=== PATIENT | male | born 1955 | race Caucasian/White ===

== ENCOUNTER → 2019-07-06 | Outpatient (CLI) | payer OTHER ==
[~2019-07-06] MED LIST: ASA81BEC PO; BACLOFEN5 MG PO; DIAZEPAM 5 MG5 M1 PO; FLEXERIL PO; FLONASE 0.05%50 MCG NARES; IBUPROFEN200 M1 PO; LATUDA60 MG PO; LEVALBUTER1.25 MG/0. INH; LIPITOR 20 MG T20 M1 PO; LORATIDINE 10 M10 M1 PO; METFORMIN HCL500 M3 PO; MONTELUKAST SODI4 M1 PO; OMEPRAZOLE 20 M20 M1 PO; PERCOCET 5-3251 EACH PO; PROAIR HFA8.5 GM INH; REMERON 30 MG T30 M1 PO; RITALIN10 MG PO; SERTRALINE HCL100 MG PO; SYMBICORT160 MCG/4. INH; TESTOSTERONE; TRAZODONE HCL100 MG PO; TYLENOL325 M1 PO; XANAX 0.5 MG0.5 M1 PO; [UNRECOGNIZED DRUG - MIXTURE]
== END ==
LOC: M.PC 02:05
DX: M50.11 Cervical disc disorder with radiculopathy, high cervical region (principal); M47.22 Other spondylosis with radiculopathy, cervical region; M79.601 Pain in right arm; R20.0 Anesthesia of skin

== ENCOUNTER → 2019-08-31 | Outpatient (CLI) | payer OTHER | END | disposition home or self-care (01) | LOC: M.PC 01:37 | DX: M79.18 Myalgia, other site (principal); G89.29 Other chronic pain; M50.10 Cervical disc disorder with radiculopathy, unspecified cervical region; M47.22 Other spondylosis with radiculopathy, cervical region; E78.00 Pure hypercholesterolemia, unspecified; J45.909 Unspecified asthma, uncomplicated; F41.9 Anxiety disorder, unspecified; Z98.890 Other specified postprocedural states; Z79.899 Other long term (current) drug therapy ==

== ENCOUNTER → 2019-09-28 | Outpatient (CLI) | payer OTHER | END | disposition home or self-care (01) | LOC: M.PC 03:38 | PROVIDERS: ATTEND Physical Medicine & Rehabilitation | DX: M47.812 Spondylosis without myelopathy or radiculopathy, cervical region (principal); M54.2 Cervicalgia; E78.00 Pure hypercholesterolemia, unspecified; F41.9 Anxiety disorder, unspecified; J45.909 Unspecified asthma, uncomplicated; M47.22 Other spondylosis with radiculopathy, cervical region; Z98.890 Other specified postprocedural states; Z79.899 Other long term (current) drug therapy ==

== ENCOUNTER → 2019-10-12 | Outpatient (CLI) | payer OTHER | LOC: M.PC 04:18 | PROVIDERS: ATTEND Physical Medicine & Rehabilitation | DX: M50.10 Cervical disc disorder with radiculopathy, unspecified cervical region (principal); M47.22 Other spondylosis with radiculopathy, cervical region; M96.1 Postlaminectomy syndrome, not elsewhere classified; M79.10 Myalgia, unspecified site; Z79.899 Other long term (current) drug therapy ==

== ENCOUNTER → 2019-11-09 | Outpatient (CLI) | payer OTHER ==
[~2019-11-09] MED LIST changes: +IPRAT-ALBUT 0.5-3 ML INH; +LIPITOR 40 MG T40 M1 PO; +METHYLPHENIDATE20 M1 PO; +OMEPRAZOLE10 MG PO; +SINGULAIR 10 MG10 M1 PO; +TESTOSTERO200 MG/1 M IM
== END ==
LOC: M.PC 04:23
PROVIDERS: ATTEND Physical Medicine & Rehabilitation
DX: M47.22 Other spondylosis with radiculopathy, cervical region (principal); M50.10 Cervical disc disorder with radiculopathy, unspecified cervical region; M96.1 Postlaminectomy syndrome, not elsewhere classified; R20.2 Paresthesia of skin; M79.10 Myalgia, unspecified site; M53.82 Other specified dorsopathies, cervical region

== ENCOUNTER → 2020-08-29 | Outpatient (CLI) | payer OTHER | END | disposition home or self-care (01) | LOC: M.PC 08:49 | PROVIDERS: ATTEND Physical Medicine & Rehabilitation | DX: M47.812 Spondylosis without myelopathy or radiculopathy, cervical region (principal); M50.30 Other cervical disc degeneration, unspecified cervical region; G89.29 Other chronic pain; E78.00 Pure hypercholesterolemia, unspecified; J45.909 Unspecified asthma, uncomplicated; F41.9 Anxiety disorder, unspecified; Z98.890 Other specified postprocedural states; Z79.899 Other long term (current) drug therapy ==

== ENCOUNTER → 2020-12-07 | Outpatient (CLI) | payer OTHER | END | disposition home or self-care (01) | LOC: M.PC 09:43 | PROVIDERS: ATTEND Physical Medicine & Rehabilitation | DX: M47.812 Spondylosis without myelopathy or radiculopathy, cervical region (principal); M50.10 Cervical disc disorder with radiculopathy, unspecified cervical region; G89.29 Other chronic pain; J45.909 Unspecified asthma, uncomplicated; E78.00 Pure hypercholesterolemia, unspecified; F41.9 Anxiety disorder, unspecified; Z98.890 Other specified postprocedural states; Z79.899 Other long term (current) drug therapy ==